=== PATIENT | female | born 2000 | race Caucasian/White ===

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

== ENCOUNTER 2018-12-18 16:32 | Emergency (ER) | payer BC, OTHER ==
--- NOTE | 2018-12-18 16:59 | ER Document Report ---
HPI - HPI Patient complains to provider of: "thyroid problem" Time Seen by Provider: 12/18/18 16:43 Pain Level: 2 Context: 18-year-old otherwise healthy female with reported hypothyroidism presents to the emergency department with chief complaint of "thyroid problem". She says that she is having thyroid pain that is sharp and "pokey" in the region of her thyroid. She states that she is supposed to be on levothyroxine 25 mcg daily but ran out when her PCM deployed and she has not followed up with her care team at the [facility] since. She denies any anxiety or agitation, denies tachycardia, does complain of periodic palpitations, denies any profuse diaphoresis but does states that she does sweat more since she had her child and was diagnosed with hypothyroidism, denies any recent illness, denies fevers or chills, denies nausea or vomiting, denies diarrhea or constipation, denies acute shortness of breath or chest pain, denies any urinary symptoms. 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 No acute distress. HEAD: Normocephalic, atraumatic. EYES: Pupils equal and round. Extraocular movements intact. ENT: Oral mucosa moist, tongue midline. NECK: Full range of motion. Trachea midline. No nodules when palpating and assessing thyroid, thyroid did not appear or feel enlarged EXTREMITIES: Moves all 4 extremities spontaneously. No edema, No cyanosis. PSYCH: Normal affect, normal mood. SKIN: Warm, dry, normal turgor. No rashes or lesions noted. - INFECTION CONTROL TRAVEL OUTSIDE OF THE [place] IN LAST 30 DAYS: No Course - Re-evaluation Re-evalutation: 12/18/18 16:5Patient presents with concern for thyroid pain and examination of her thyroid was grossly normal. I will get a TSH and an EKG as a courtesy and I explained to her that this is a primary care issue and she needs to call the [facility] and make an appointment with her primary care team. Pending nor mal labs and EKG she will be stable for discharge. 12/18/18 19:44 TSH 15.1. EKG showed normal sinus rhythm. Plan is to give her her usual dose of levothyroxine and have her follow-up with primary care in the morning. No evidence of myxedema coma at this time patient is stable awake alert. Vital signs within normal range. Stable for discharge. - Vital Signs Vital signs: Temp Pulse Resp BP Pulse Ox 98.3 F 80 20 128/71 H 100 12/18/18 16:36 12/18/18 16:36 12/18/18 16:36 12/18/18 16:36 12/18/18 16:36 Discharge - Discharge Clinical Impression: Anterior neck pain Condition: Good Disposition: HOME, SELF-CARE Additional Instructions: You were seen in the emergency department this afternoon for neck pain around the area of your thyroid. When I palpated your thyroid I could not feel any nodules and it was not enlarged. This is all very reassuring. Your TSH level was elevated and your EKG was normal. Also, even though your PCM is deployed you are assigned to a care team and you can make an appointment with anyone on the team and they will be able to manage any of your conditions. That is why it is set up that way to allow for deployment cycles and enable you to have good c ontinuity of care. If you develop severe agitation or anxiety, rapid heart rate and frequent palpitations, extreme sweating, chest pain or acute shortness of breath, please immediately return to the emergency department.
[2018-12-18 19:43] VITALS: BP 111/66
[2018-12-18] MEDS ORDERED: LEVOTHYROXINE SODIUM 0.025 MG TABLET PO ONE (19:45)
--- NOTE | 2018-12-19 18:18 | EKG REPORT ---
SEVERITY:- NORMAL ECG - SINUS RHYTHM : Confirmed by: Devi Park MD 19-Dec-2018 18:18:03
== END 2018-12-18 20:11 | disposition home or self-care (01) ==
LOC: ER 16:32
DX: M54.2 Cervicalgia (principal); E03.9 Hypothyroidism, unspecified; T38.1X6A Underdosing of thyroid hormones and substitutes, initial encounter; Z91.128 Patient's intentional underdosing of medication regimen for other reason; Z91.14 Patient's other noncompliance with medication regimen; R00.2 Palpitations
CPT/HCPCS: 36415; 84443; 93005; 93010; 99283